=== PATIENT | female | born 1960 | race Two or more races ===

== ENCOUNTER 2018-01-12 06:10 | Day surgery (SDC) | payer OTHER | END 2018-01-12 16:30 | disposition home or self-care (01) | LOC: CIR.AMB 06:10 | DX: K64.8 Other hemorrhoids (principal); K64.4 Residual hemorrhoidal skin tags ==

== ENCOUNTER 2018-06-10 09:49 | Day surgery (SDC) | payer OTHER | END 2018-06-10 16:15 | disposition home or self-care (01) | LOC: AMB-ENDOS 09:49 | DX: K64.1 Second degree hemorrhoids (principal) ==

== ENCOUNTER 2021-03-21 09:48 | Day surgery (SDC) | payer OTHER | END 2021-03-21 15:40 | disposition home or self-care (01) | LOC: AMB-ENDOS 09:48 | PROVIDERS: ATTEND Colon & Rectal Surgery | DX: D13.1 Benign neoplasm of stomach (principal); K64.0 First degree hemorrhoids; K29.60 Other gastritis without bleeding ==